=== PATIENT | male | born 1950 | race American Indian/Alaskan Native ===

== ENCOUNTER 2018-05-20 15:36 | Emergency (ER) | payer MEDICARE ==
[2018-05-20 20:03] VITALS: BP 140/66
--- NOTE | 2018-05-20 20:09 | Emergency Department Report ---
ED Lower Extremity HPI - General Chief Complaint: Extremity Injury, Lower Stated Complaint: LEFT FOOT PAIN Time Seen by Provider: 05/20/18 19:59 Source: patient, EMS Mode of arrival: Ambulatory Limitations: Physical Limitation - History of Present Illness Initial Comments: The patient sees 7-year-old female status post Achilles tendon repair 6 months ago currently in rehabilitation for same says is out of tramadol requesting refill on same as refill Has Follow-Up Appointment Orthopedic Surgery on the & . there has been no new injury fall or trauma. MD Complaint: leg injury Onset/Timin -: month(s) Injury: Ankle: Left Type of Injury: other (achiles tendon rupture ) Place: home Severity: moderate Severity scale (0 -10): 4 Improves With: nothing Worsens With: nothing Context: fall Associated Symptoms: ambulatory Treatments Prior to Arrival: other (tramadol ) - Related Data Previous Rx's Medication Instructions Recorded Last Taken Type traMADol [Ultram] 50 mg PO Q6HR PRN 3 Days #12 tablet 05/20/18 Unknown Rx ED Review of Systems ROS: Stated complaint: LEFT FOOT PAIN Other details as noted in HPI Constitutional: denies: chills, fever Eyes: denies: eye pain, eye discharge, vision change ENT: denies: ear pain, throat pain Respiratory: denies: cough, shortness of breath, wheezing Cardiovascular: denies: chest pain, palpitations Endocrine: no symptoms reported Gastrointestinal: denies: abdominal pain, nausea, diarrhea Genitourinary: denies: urgency, dysuria Musculoskeletal: arthralgia. denies: myalgia Skin: denies: rash, lesions Neurological: denies: headache, weakness, paresthesias Psychiatric: denies: anxiety, depression Hematological/Lymphatic: denies: easy bleeding, easy bruising ED Past Medical Hx - Past Medical History Previous Medical History?: No - Surgical History Past Surgical History?: Yes Additional Surgical History: ingroin hernia repair - Social History Smoking Status: Current Every Day Smoker Substance Use Type: Alcohol - Medications Home Medications: Home Medications Medication Instructions Recorded Confirmed Last Taken Type traMADol [Ultram] 50 mg PO Q6HR PRN 3 Days #12 tablet 05/20/18 Unknown Rx ED Physical Exam - General Limitations: Physical Limitation General appearance: alert, in no apparent distress - Head Head exam: Present: atraumatic, normocephalic - Eye Eye exam: Present: normal appearance - ENT ENT exam: Present: mucous membranes moist - Neck Neck exam: Present: normal inspection - Respiratory Respiratory exam: Present: normal lung sounds bilaterally. Absent: respiratory distress - Cardiovascular Cardiovascular Exam: Present: regular rate, normal rhythm. Absent: systolic murmur, diastolic murmur, rubs, gallop - GI/Abdominal GI/Abdominal exam: Present: soft, normal bowel sounds - Rectal Rectal exam: Present: deferred - Extremities Exam Extremities exam: Present: normal inspection, tenderness, normal capillary refill. Absent: pedal edema (left lateral post ankle ), joint swelling, calf tenderness - Expanded Lower Extremity Exam Left Ankle exam: Present: full ROM, tenderness. Absent: swelling, abrasion, laceration, ecchymosis, deformity, crepidus, dislocation, erythema, anterior draw sign Foot/Toe exam: Present: normal inspection, full ROM Neuro vascular tendon exam: Present: no vascular compromise. Absent: pulse deficit, abnormal cap refill, motor deficit, sensory deficit, tendon deficit, extremity cold to touch, foot drop, peroneal nerve deficit Gait: Positive: observed and normal (with yojana boot ) - Back Exam Back exam: Present: normal inspection, full ROM. Absent: tenderness, CVA tenderness (R), CVA tenderness (L), muscle spasm, paraspinal tenderness, vertebral tenderness, rash noted - Neurological Exam Neurological exam: Present: alert, oriented X3, normal gait. Absent: reflexes normal - Psychiatric Psychiatric exam: Present: normal affect, normal mood - Skin Skin exam: Present: warm, dry, intact, normal color. Absent: rash ED Course Vital Signs 05/20/18 05/20/18 15:54 20:01 Temperature 98.1 F 98.3 F Pulse Rate 81 75 Respiratory 16 18 Rate Blood Pressure 122/66 140/66 [Left] O2 Sat by Pulse 94 98 Oximetry ED Lower Extremity MDM - Medical Decision Making this chronic lower extrem pain , plan ket[place]lac im in ed, check [place] [facility] , noted last tramadol refill 02/20/2018 will proved 3 days supply pt will follow up with ortho as scheduled. pt verbalized agreement and understanding of same. Critical care attestation.: If time is entered above; I have spent that time in minutes in the direct care of this critically ill patient, excluding procedure time. ED Disposition Clinical Impression: Chronic lower limb pain Qualifiers: Laterality: left Qualified Code(s): M79.605 - Pain in left leg Disposition: DC- TO HOME OR SELFCARE Is pt being admited?: No Does the pt Need Aspirin: No Condition: Good Instructions: Musculoskeletal Pain (ED) Additional Instructions: follow up with orthopedic surgery as scheduled in 2 days. Prescriptions: traMADol [Ultram] 50 mg PO Q6HR PRN 3 Days #12 tablet PRN Reason: Pain Referrals: PRIMARY CARE, [Primary Care Provider] - 3-5 Days Forms: Work/School Release Form(ED) Time of Disposition: 20:16
[2018-05-20] MEDS ORDERED: ULTRAM PO ONE (20:20)
== END 2018-05-20 20:28 | disposition home or self-care (01) ==
LOC: ED 15:36
DX: M79.605 Pain in left leg (principal); G89.29 Other chronic pain; F17.200 Nicotine dependence, unspecified, uncomplicated
CPT/HCPCS: 99283